=== PATIENT | male | born 1985 | race Caucasian/White ===

== ENCOUNTER 2018-02-28 19:52 | Emergency (ER) | payer MEDICAID, OTHER ==
[2018-02-28 20:02] VITALS: BP 145/110
--- NOTE | 2018-02-28 20:21 | EDPHY ---
H & P Time Seen by Provider: 02/28/18 20:06 HPI/ROS: CHIEF COMPLAINT: Odontalgia HISTORY OF PRESENT ILLNESS: 33-year-old immunocompetent male complaining of left mandibular molar pain for the past 2 months. He has been followed by dentist at [facility] but has been referred to dental aid. No fever no chills no nausea no vomiting. No change in voice. No trismus no drooling. PRIMARY CARE PROVIDER: REVIEW OF SYSTEMS: A ten point review of systems was performed and is negative with the exception of the items mentioned in the HPI PHYSICAL EXAM (Prior to examination, patient consented to physical exam, hands were washed and my usual and customary physical exam procedures followed) 1) GENERAL: Well-developed, well-nourished, alert and oriented. Appears to be in no acute distress. 2) HEAD: Normocephalic 3) HEENT: sclera anicteric . Symmetrical faces. Submandibular and submental spaces are soft with no tenderness, no induration no erythema. Floor of mouth soft no evidence Ludwigs Angina. Poor dentition. Tender to percussion left mandibular 2nd molar with no evidence of apical abscess 4) LUNGS: Breathing comfortably. Smoking Status: Heavy smoker Constitutional: Initial Vital Signs Temperature (C) 36.7 C 02/28/18 20:01 Heart Rate 69 02/28/18 20:01 Respiratory Rate 16 02/28/18 20:01 Blood Pressure 145/110 H 02/28/18 20:01 O2 Sat (%) 96 02/28/18 20:01 O2 Delivery Mode Room Air Allergies/Adverse Reactions: erythromycin base Allergy (Verified 12/03/15 08:51) Home Medications: Medication Instructions Recorded Alemaria antonia 12/03/15 Ondansetron Odt [Zofran Odt] 4 mg PO Q4PRN #5 tab 12/03/15 Amoxicillin Trihydrate 500 mg PO Q8 7 Days cap 12/07/15 [Amoxicillin 500mg cap] oxyCODONE/APAP 5/325 [Percocet 1 tab PO Q6 #15 tab 12/07/15 5/325] Amoxicillin/Clavulanate Pot 875 mg PO BID #14 tab 02/28/18 [Augmentin 875 mg tab] Hydrocodone/APAP 5/325 [Edmond 1 tab PO Q6 PRN #10 tab 02/28/18 5/325 (RX)] MDM/Departure - MDM Procedures: Procedure: Dental nerve block Indication: Odontalgia Indications risks benefits discussed with patient. Inferior alveolar nerve block with 1% lidocaine, plain, placed by myself following my usual and customary technique. Patient tolerated procedure well. There were no immediate adverse effects. ED Course/Re-evaluation: 8:20 p.m.: Voicemail was left with dental aid 24 hr voicemail. Patient has no evidence of deep space infection or Jorge's angina. I do not think that imaging studies or admission is currently indicated. Today is Saturday. I have recommend he follow up with dental aid on Saturday. In the meantime he is given Augmentin, Edmond. Usual and customary odontogenic precautions instructions provided. He feels comfortable being discharged home. Care of patient under supervision of secondary supervising physician Dr Jang. - Depart Disposition: Home, Routine, Self-Care Clinical Impression: Atypical odontalgia Condition: Good Instructions: Toothache (ED) Prescriptions: Amoxicillin/Clavulanate Pot [Augmentin 875 mg tab] 875 mg PO BID #14 tab Hydrocodone/APAP 5/325 [Edmond 5/325 (RX)] 1 tab PO Q6 PRN #10 tab PRN Reason: Pain, Severe Referrals: Dental Aid [Outside] - 03/03/18
== END 2018-02-28 20:34 | disposition home or self-care (01) ==
PROC: 3E0X3BZ Introduction of Anesthetic Agent into Cranial Nerves, Percutaneous Approach (ICD-10-PCS; principal; 2018-02-28)
DX: K08.89 Other specified disorders of teeth and supporting structures (principal); F17.200 Nicotine dependence, unspecified, uncomplicated